=== PATIENT | male | born 1965 | race Caucasian/White ===

== ENCOUNTER 2018-09-04 16:59 | Observation (INO) | payer BC, SELFPAY ==
[~2018-09-04 16:59] MED LIST: ISOVUE-370 76%-LOCM 1 ML ONE
[2018-09-04 18:42] LABS: #Eosinphils 0.3 thou/uL (0.0-0.7); #Lymphocytes 1.3 thou/uL (1.20-3.40); #Monocytes 0.5 thou/uL (0.11-0.59); #Neutrophils 3.9 thou/uL (1.40-6.50); %Eosinophils 4.5 % (0.0-10.0); %Lymphocytes 21.5 % (21.0-51.0); %Monocytes 7.9 % (0.0-10.0); %Neutrophils 66.1 % (42.0-75.0); Hemoglobin 17.3 g/dL (14.0-18.0); Mean Corpuscular HGB CONC 35.1 g/dL (32.0-36.0); Mean Corpuscular Hemoglobin 31.4 pg (27.0-31.0); Mean Corpuscular Volume 89.6 fL (78.0-98.0); Mean Platelet Volume 8.6 fL (7.4-10.4); Platelet Count 123 thou/uL (130-400); RBC Distribution Width 12.3 % (11.5-14.5); White Blood Cell (WBC) Count 5.9 thou/uL (4.8-10.8)
[2018-09-04 19:05] LABS: ALT (SGPT) 274 U/L (8-55); AST (SGOT) 159 U/L (5-34); Albumin 4.8 g/dL (3.5-5.0); Alkaline Phosphatase 130 U/L (40-150); Anion Gap 16 mmol/L (10-20); BUN (Urea Nitrogen) 17 mg/dL (8.4-25.7); Bilirubin, Total 10.1 mg/dL (0.2-1.2); Calc. Creatinine Clearance 0 mL/min (70-130); Calcium 9.8 mg/dL (7.8-10.44); Carbon Dioxide 29 mmol/L (22-29); Chloride 98 mmol/L (98-107); Estimated GFR-MDRD 72; Glucose 101 mg/dL (70-105); Lipase 30 U/L (8-78); Potassium 3.7 mmol/L (3.5-5.1); Protein, Total 7.8 g/dL (6.0-8.3); Sodium 139 mmol/L (136-145)
[2018-09-04 19:22] LABS: INR-International Normal Ratio 1.1; PTT 28.7 SEC (22.9-36.1); Prothrombin Time 13.8 SEC (12.0-14.7)
[2018-09-04 20:02] LABS: Bilirubin Large (Negative); Blood, Urine Negative (Negative); Clarity CLEAR (Clear); Glucose, Urine (Dipstick) Negative (Negative); Leukocyte Small (Negative); Nitrite Positive (Negative); Protein, Urine (Dipstick) Negative (Neg-Trace); Specific Gravity, Urine 1.023 (1.002-1.036)
[2018-09-04 20:05] LABS: Bacteria/HPF None Seen HPF (None Seen); Hyaline Casts/LPF 4-6 HYALINE CAST LPF (0-3 Hyaline); Pathc Cast-AUWi Flag 0.29 (0-2.49); RBC/HPF 0-3 HPF (0-3); Squamous Epithelial 0-3 HPF (0-3)
--- NOTE | 2018-09-04 22:39 | CT ---
CT ABDOMEN AND PELVIS WITH IV CONTRAST 09/04/18 HISTORY: Diffuse constant abdominal pain for four days. COMPARISON: Noncontrast CT abdomen and pelvis on 08/04/13. FINDINGS: There is dependent atelectasis at each lung base. Calcified granuloma is seen in the right middle lob e. The heart is mildly enlarged. The thoracic aorta is normal in caliber without evidence of an aortic dissection. The previously seen exophytic lesions involving the inferior pole left kidney are present with increased density lesions again present, not significantly changed in size from the prior study and may represent Bosniak type II renal cystic lesions. The hypodense exophytic lesion inferior pole left kidney is also again pres ent but measures larger in size on today's examination measuring 3.3 cm and previously measured 2.4 c m. However, this does demonstrate increased density on the current study and there is also a tiny foc al calcification along the margin of this cystic lesion. There is cholelithiasis. The liver has a normal CT appearance. The spleen is at the upper limits of normal in size measuring 1 3.6 cm in craniocaudal dimensions. The pancreas, bilateral adrenal glands, right kidney, and urinary bladder demonstrate a normal CT nelda earance. Loops of small bowel are normal in caliber. There is no free fluid, fluid collection, or lymphadenopathy seen in the abdomen or pelvis. Degenerative changes are seen in the visualized lower thoracic spine. There is a prominent fat containing right inguinal canal which was also present on the prior study. IMPRESSION: 1. Exophytic lesions emanating from the inferior pole left kidney which do not meet criteria for simple cysts. The smaller increased density cystic lesions are stable in size from the prior study a nd are probably related to Bosniak type II renal cystic lesions. However, the lower density exophytic lesion is larger in size measuring 3.3 cm and does not demonstrate attenuation coefficient compatibl e with a simple cyst. This could also be related to Bosniak type II renal cystic lesion but followup CT scan following the renal mass protocol is recommended versus MRI for further evaluation. 2. Mild cardiomegaly. 3. Cholelithiasis. 4. Prominent fat containing right inguinal canal. Upper limits of normal to borderline splenomeg jake. Code T POS: MOISÉS
--- NOTE | 2018-09-04 23:00 | PDOC.FPRHP ---
- History of Present Illness Chief Complaint: abdominal pain History of Present Illness: 52yo M with pmh of fatty liver presents with 1 week hx of diffuse abdominal pain that "feels like indigestion" rated 4-7/10 on pain scale. Pain exacerbated by eating, pt has associated decreased PO intake. Additionally reports dark stools over last few days and 1 day hx of yellow skin and eyes. 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 Regarding fatty liver, pt was Dx 6 years ago and reported having normal EGD at the time. Reports significant lifestyle changes and has since been eating diet of mostly vegetables and fruits. Has never drank more than 1 beer/month but stopped drinking all together on Dx. ED Course: bolus IVF - Allergies/Adverse Reactions Allergies Allergy/AdvReac Type Severity Reaction Status Date / Time No Known Allergies Allergy Verified 09/05/18 01:09 - History PMHx: fatty liver PSHx: EGD 2012 FHx: none Social: former social drinker, denies tobacco/drugs - Review of Systems General: denies: fever/chills, fatigue Eyes: denies: eye pain, vision changes ENT: denies: nasal congestion, rhinorrhea Respiratory: denies: cough, shortness of breath Cardiovascular: denies: chest pain, palpitation Gastrointestinal: reports: nausea. denies: vomiting Genitourinary: denies: incontinence, dysuria Skin: denies: rashes, lesions Musculoskeletal: denies: pain, tenderness Neurological: denies: syncope, seizure Psychological: reports: anxiety. denies: depression - Vital signs BP: [133/90] HR: [72] RR: [16] Tmax: [98.4] Pox: [98]% on [ra] Wt: [108kg] - Physical Exam Constitutional: awake, alert and oriented, well developed HEENT: EOMI, grossly normal vision, grossly normal hearing, normal nasal mucosa , other (scleral icterus) Neck: supple, trachea midline Chest: no-tender to palpation Heart: RRR, normal S1/S2 Lungs: CTAB, no respiratory distress Abdomen: soft, bowel sounds present, other (mild TTP in RLQ, negative heel tap, negative obturator/psoas sign.) Musculoskeletal: normal structure, normal tone Neurological: no focal deficit, normal sensation Skin: no rash/lesions, good turgor Heme/Lymphatic: no purpura, no petechia Psychiatric: normal mood and affect, good judgment and insight FMR H&P: Results - Labs Result Diagrams: 09/04/18 18:16 09/04/18 18:16 Lab results: WBC 5.9 thou/uL (4.8-10.8) 09/04/18 18:16 Hgb 17.3 g/dL (14.0-18.0) 09/04/18 18:16 Hct 49.2 % (42.0-52.0) 09/04/18 18:16 MCV 89.6 fL (78.0-98.0) 09/04/18 18:16 Plt Count 123 thou/uL (130-400) L 09/04/18 18:16 Neutrophils % 66.1 % (42.0-75.0) 09/04/18 18:16 Sodium 139 mmol/L (136-145) 09/04/18 18:16 Potassium 3.7 mmol/L (3.5-5.1) 09/04/18 18:16 Chloride 98 mmol/L (98-107) 09/04/18 18:16 Carbon Dioxide 29 mmol/L (22-29) 09/04/18 18:16 BUN 17 mg/dL (8.4-25.7) 09/04/18 18:16 Creatinine 1.08 mg/dL (0.7-1.3) 09/04/18 18:16 Glucose 101 mg/dL (70-105) 09/04/18 18:16 Calcium 9.8 mg/dL (7.8-10.44) 09/04/18 18:16 Total Bilirubin 10.1 mg/dL (0.2-1.2) H 09/04/18 18:16 AST 159 U/L (5-34) H 09/04/18 18:16 ALT 274 U/L (8-55) H 09/04/18 18:16 Alkaline Phosphatase 130 U/L (40-150) 09/04/18 18:16 Serum Total Protein 7.8 g/dL (6.0-8.3) 09/04/18 18:16 Albumin 4.8 g/dL (3.5-5.0) 09/04/18 18:16 Lipase 30 U/L (8-78) 09/04/18 18:16 Urine Ketones Trace mg/dL (Negative) H 09/04/18 19:14 Urine Blood Negative (Negative) 09/04/18 19:14 Urine Nitrite Positive (Negative) H 09/04/18 19:14 Ur Leukocyte Esterase Small (Negative) H 09/04/18 19:14 Urine RBC 0-3 HPF (0-3) 09/04/18 19:14 Urine WBC 11-20 HPF (0-3) H 09/04/18 19:14 Ur Squamous Epith Cells 0-3 HPF (0-3) 09/04/18 19:14 Urine Bacteria None Seen HPF (None Seen) 09/04/18 19:14 FMR H&P: A/P - Problem List (1) Hyperbilirubinemia Current Visit: Yes Status: Acute Code(s): E80.6 - OTHER DISORDERS OF BILIRUBIN METABOLISM (2) Elevated transaminase level Current Visit: Yes Status: Acute Code(s): R74.0 - NONSPEC ELEV OF LEVELS OF TRANSAMNS & LACTIC ACID DEHYDRGNSE (3) Fatty liver Current Visit: Yes Status: Acute Code(s): K76.0 - FATTY (CHANGE OF) LIVER, NOT ELSEWHERE CLASSIFIED (4) Hypovolemia Current Visit: Yes Status: Acute Code(s): E86.1 - HYPOVOLEMIA (5) Cholelithiases Current Visit: Yes Status: Acute Code(s): K80.20 - CALCULUS OF GALLBLADDER W /O CHOLECYSTITIS W/O OBSTRUCTION - Plan 52yo M presenting for 1 week abdominal pain Hyperbilirubinemia and elevated transaminases likely 2/2 hepatocellular jaundice A- etiology likely fatty liver vs biliary obstruction vs. toxic hepatitis. CT abd shows cholelithiasis. Bili 10.1 on admission as well as mildly elevated transaminases, alk phos wnl. P-Will obtain labwork including direct bilirubin level, TSH, hepatitis panel, HIV screen, RPR, iron studies, and TTG. - RUQ US - consider inpatient vs outpatient GI consultation for possible ERCP. mild hypovolemia A- Hx of limited PO intake P- encourage PO intake - IVF overnight - control nausea with zofran UTI A- UA shows positive nitrites P- obtain UCx - rocephin Cholelithiasis A- stone(s) seen on CT P- RUQ US and plan per above Mild thrombocytopenia -Likely secondary to above. Continue to trend. FULL code PPx: Lovenox for VTE, Protonix for GI. FMR H&P: Upper Level - Pertinent history 52 yo CM with PMH of fatty liver presenting with complaint of abdominal pain. Pt notes diffuse intermittent cramping abdominal pain with associated decreased oral intake over the last 1-2 weeks. Pt states that he also noticed turning yellow yesterday and finally convinced pt to present to ER. Associated with some diarrhea and darker stools but pt denies fevers/chills, weight loss, change in bowel caliber, or BRBPR. Abdominal pain somewhat worsened with food. - Pertinent findings VSS Gen: pleasant in NAD CV: RRR, no murmurs Resp: unlabored, CTAB Abd: BS+, soft, NTTP, neg Navarro's - Plan Date/Time: 09/04/18 2300 I, Rudolph Meyer MD PGY3, have evaluated this patient and agree with findings/ plan as outlined by internal medicine nurse resident. Pertinent changes/additions are listed here. 1. Elevated LFTs possibly 2/2 Hepatocellular Jaundice -Pt presents with diffuse complaints of abdominal pain and found to have total bilirubin of 10.1 accompanied by mild elevation in AST & ALT as well. Alkaline phosphatase is normal. -DDx includes biliary obstruction, infectious hepatitis, toxic hepatitis, or impaired conjugation. -CT abd revealed cholelithiasis as potential cause. -Will workup including direct bilirubin level, TSH, hepatitis panel, HIV screen , iron studies, and TTG. Pt may benefit from dedicated RUQ US to further assess gallbladder pathology. -Due to history of limited PO intake and worsening with food, will IV hydrate overnight and trend labs. -Pending lab trends, consider inpatient vs outpatient GI consultation for possible ERCP. 2. Mild thrombocytopenia -Likely secondary to above. Continue to trend. FULL code PPx: Lovenox for VTE, Protonix for GI. disposition: Admit to medical observation for anticipated length of stay less than two midnights, pending clinical course. Addendum - Attending - Attending Attestation Date/Time: 09/05/18 [id number] I personally evaluated the patient and discussed the management with Dr. Almendarez I agree with the History, Examination, Assessment and Plan documented above with any addition or exceptions noted below.Interesting case of 52 yo male cavazos with PMHX presumed NAFLD treated with lifestyle modification ( denies ETOH abuse)with recent epigastric pain and spouse noticed jaundice prompting ER vist with finding of hyperbilirubenemia and gallstone with normal alk phosphatase and coags agree with above workup and plan of care. would check ferritin consider hemochromatosis.
[2018-09-05 01:02] VITALS: BMI 33.6
[2018-09-05] MEDS ORDERED: Ondansetron ODT 4 MG TAB PO PRN (01:06)
[2018-09-05] MEDS ORDERED: Ondansetron PF 4 MG/2 ML Vial IVP PRN (01:06)
[2018-09-05] MEDS: Lactated Ringer's 1,000 ML IV SCH ×3 (01:45→17:53)
[2018-09-05 01:55] LABS: HBCM Index 0.06 S/CO (0-0.79); HIV (1/2) Antibody/Antigen Non-Reactive (NonReactive); HIV 1/2 INDEX 0.07 S/CO (<1.00); Hep A IgM AB Non-Reactive (NonReactive); Hep A IgM S/CO 0.11 S/CO (0-0.79); Hep B Surf Ag Non-Reactive S/CO (NonReactive); Hep C IgG Ab Non-Reactive (NonReactive); Hep C Index 0.06 S/CO (0-0.79); Hepatitis B Core IgM Abs Non-Reactive (NonReactive); Thyroid Stimulating Hormone 0.8119 uIU/mL (0.35-4.94)
[2018-09-05] MEDS ORDERED: cefTRIAXone\\ROCEPHIN 1 GM in Sodium Chloride 0.9% 100 ML IVPB SCH (02:00)
[2018-09-05] MEDS: Ibuprofen 600 MG TAB PO PRN ×2 (05:33→17:13)
[2018-09-05 06:18] LABS: Syphilis Antibody Nonreactive (Nonreactive); Syphilis Antibody Index 0.05 S/CO (<1.00 Non-Reactive)
--- NOTE | 2018-09-05 06:37 | PDOC.FM ---
- Subjective Subjective: NAEO. Patient states he feels well this AM. Reports that his pain is slightly improved from presentation at a 6/10 in intensity and just a generalized cramping. Denies any chest pain, SOB, fever/chills, or N/V. - Objective MAR Reviewed: Yes Vital Signs & Weight: Vital Signs (12 hours) Temp Pulse Resp BP Pulse Ox 09/05/18 05:00 97.6 F 55 L 17 144/91 H 95 09/05/18 00:30 98.2 F 55 L 16 132/79 95 Weight Weight 109.316 kg I&O: 09/03/18 09/04/18 09/05/18 06:59 06:59 06:59 Intake Total 900 Balance 900 Result Diagrams: 09/04/18 18:16 09/05/18 05:30 Phys Exam - Physical Examination Constitutional: NAD HEENT: moist MMs, sclera anicteric Neck: supple, full ROM Respiratory: no wheezing, no rales, no rhonchi, clear to auscultation bilateral Cardiovascular: RRR, no significant murmur Gastrointestinal: positive bowel sounds not particularly TTP in any area; no rebound or guarding Neurological: non-focal, moves all 4 limbs Psychiatric: normal affect, A&O x 3 Skin: no rash Deviation from normal: jaundiced appearing chest and slight jaundice in palms Dx/Plan (1) Cholelithiases Code(s): K80.20 - CALCULUS OF GALLBLADDER W/O CHOLECYSTITIS W/O OBSTRUCTION Status: Acute (2) Elevated transaminase level Code(s): R74.0 - NONSPEC ELEV OF LEVELS OF TRANSAMNS & LACTIC ACID DEHYDRGNSE Status: Acute (3) Fatty liver Code(s): K76.0 - FATTY (CHANGE OF) LIVER, NOT ELSEWHERE CLASSIFIED Status: Acute (4) Hyperbilirubinemia Code(s): E80.6 - OTHER DISORDERS OF BILIRUBIN METABOLISM Status: Acute (5) Hypovolemia Code(s): E86.1 - HYPOVOLEMIA Status: Acute - Plan Plan: 52YOM w/ a reported h/o NAFLD presenting for 1 week of abdominal pain. Hyperbilirubinemia and elevated transaminases likely 2/2 hepatocellular jaundice - Abdominal pain DDx etiology includes fatty liver vs biliary obstruction vs. toxic hepatitis. CT abd shows cholelithiasis. Total bili 10.1 on admission with a direct bili of 3.7 & mildly elevated transaminases, alk phos wnl. - TSH, hepatitis panel, HIV screen, & RPR WNLs. iron studies and TTG pending. Will consider more AI studies as well. - RUQ US pending as well since CT showed gallstones - Will consider inpatient vs outpatient GI consultation for possible ERCP pending results of U/S. Will consider a HIDA scan as well pending U/S results. mild hypovolemia - Hx of limited PO intake - Will encourage PO intake & de-escalate IVFs as PO intake improves. - control nausea with zofran UTI - UA shows positive nitrites, LE, & WBCs. - Cx pending. - Will prophylactically treat w/ Rocephin. Cholelithiasis - stone(s) seen on CT - RUQ US pending and will proceed as described above pending the results. Mild thrombocytopenia -Likely secondary to above. Will ontinue to trend. FULL code PPx: Lovenox for VTE, Protonix for GI. IVFs: Lr @ 125mL/hr Diet: Clear liquids Addendum - Attending - Attending Attestation Date/Time: 09/05/18 3601 I personally evaluated the patient and discussed the management with Dr. Reis I agree with the History, Examination, Assessment and Plan documented above with any addition or exceptions noted below.Work up in progress note elevated ferritin no Chris-Edd rings noted on gross eye exam. Consult GI for further consideration appreciate recommendations.
[2018-09-05 06:51] LABS: ALT (SGPT) 249 U/L (8-55); AST (SGOT) 146 U/L (5-34); Albumin 4.2 g/dL (3.5-5.0); Alkaline Phosphatase 118 U/L (40-150); Anion Gap 13 mmol/L (10-20); BUN (Urea Nitrogen) 15 mg/dL (8.4-25.7); Bilirubin, Direct 4.9 mg/dL (0.1-0.3); Bilirubin, Total 10.2 mg/dL (0.2-1.2); Calc. Creatinine Clearance 135 mL/min (70-130); Calcium 9.2 mg/dL (7.8-10.44); Carbon Dioxide 29 mmol/L (22-29); Chloride 101 mmol/L (98-107); Estimated GFR-MDRD 79; Globulin 2.7 g/dL (2.4-3.5); Glucose 95 mg/dL (70-105); Potassium 3.6 mmol/L (3.5-5.1); Protein, Total 6.9 g/dL (6.0-8.3); Sodium 139 mmol/L (136-145)
--- NOTE | 2018-09-05 07:58 | ULT ---
RIGHT UPPER QUADRANT ULTRASOUND: Date: 09/05/18 PROVIDED CLINICAL HISTORY: Hyperbilirubinemia, gallstones. FINDINGS: The pancreas is obscured. The liver demonstrates no mass or intrahepatic biliary ductal dilatation. T he gallbladder is distended by material of increased echogenicity with associated shadowing. The gall bladder wall appears thickened, measuring approximately 5-6 mm. Trace pericholecystic fluid is seen. The common duct is dilated, measuring up to 1.1 cm. Right kidney demonstrates no evidence for hydrone phrosis or mass. IMPRESSION: 1. Cholelithiasis with gallbladder wall thickening and pericholecystic fluid. Correlate with concern s for acute cholecystitis. 2. Dilated common duct. Consider correlation with MRCP/ERCP as indicated. POS: MOISÉS
[2018-09-05] MEDS: Enoxaparin Sodium 40 MG/0.4 ML SYRINGE SC SCH (08:07)
[2018-09-05] MEDS: Piperacillin/Tazobactam 3.375 GM in Sodium Chloride 0.9% 100 ML IVPB SCH ×2 (14:28→20:06)
--- NOTE | 2018-09-05 20:31 | CON ---
DATE OF CONSULTATION: 09/05/2018 REASON FOR CONSULTATION: Elevated LFTs, right upper quadrant abdominal pain. CONSULTING PHYSICIAN: Dr. Terri Figueredo. HISTORY OF PRESENT ILLNESS: The patient is a 52-year-old male with past medical history of fatty liver/nonalcoholic steatohepatitis, presenting with complaints of increased abdominal pain. He states that over the last week, he has been having intermittent abdominal pain characterized as a cramping-type sensation located in the periumbilical region. The pain was nonradiating and would occur within seconds upon eating and would reach a severity of approximately 7 to 8/10. Over the last 3 to 4 days, he did notice significant worsening of this abdominal pain and became more consistent when compared to the episodes last week. The pain was worse with food intake, better with the pain medications and IV fluids he received while here in the hospital. Other than the abdominal pain, he denies any nausea, vomiting, fevers, chills, dysphagia, odynophagia, GI bleeding or weight loss. REVIEW OF SYSTEMS: A 10-category review of systems was obtained with all responses negative except for the pertinent positives as listed in the HPI. PAST MEDICAL HISTORY: As per HPI. PAST SURGICAL HISTORY: EGD performed in 2012. FAMILY HISTORY: Denies any GI malignancies. SOCIAL HISTORY: Denies any tobacco, alcohol, or illicit drug use. OUTPATIENT MEDICATIONS: Reviewed. ALLERGIES: NO KNOWN DRUG ALLERGIES. PHYSICAL EXAMINATION: VITAL SIGNS: Temperature 97.9, pulse 50, blood pressure 133/83, respiratory rate 20, saturating 96% on room air. GENERAL: The patient was lying in bed, in no acute distress. Alert and oriented x4. HEENT: Normocephalic, atraumatic. NECK: Supple. No JVD, but significant scleral icterus noted. CARDIOVASCULAR: Regular rate and rhythm with no discernible murmurs, gallops, or rubs. RESPIRATORY: Clear to auscultation bilaterally with no discernible wheezes or rales. ABDOMEN: Normoactive bowel sounds. Soft, nondistended. Tenderness to palpation in the right upper quadrant. EXTREMITIES: No cyanosis, clubbing, or edema. LABORATORY DATA: CBC with a white blood cell count of 5.9, hemoglobin 17.3, hematocrit 49.2, platelets 123. INR 1.1. Chemistry with a sodium of 139, potassium 3.6, chloride 101, CO2 29, BUN 15, creatinine 1, glucose 95, AST 146, ALT 249, alkaline phosphatase 118, total bilirubin 10.2, lipase 30, ferritin 2242. Urinalysis was positive for possible urinary tract infection and infectious workup was negative for syphilis, hepatitis, A, B, and C. IMAGING DATA: CT of the abdomen and pelvis was obtained on September 04, 2018, which showed normal contour of the liver without evidence of cirrhotic morphology as well as cholelithiasis. No specific mention was made on the common bile duct, but upon measuring the CBD myself, it measured approximately 13 mm in diameter. Right upper quadrant ultrasound obtained on September 05, 2018 showed no intrahepatic dilatation, but did show dilation of the common bile duct up to 11 mm in size, as well as gallbladder wall thickening with pericholecystic fluid concerning for cholecystitis. ASSESSMENT AND PLAN: The patient is a 52-year-old male with past medical history of fatty liver/nonalcoholic steatohepatitis, presenting with elevated LFTs and imaging concerning for choledocholithiasis. Choledocholithiasis. The patient is presenting with increased periumbilical abdominal pain that has been present for the last week to week and a half. It initially started out as intermittent episodes of cramping periumbilical pain; however, over the last 3-4 days, this worsened to include almost every time the patient ate with the pain occurring within seconds of food ingestion. Upon evaluation in the [facility], he was noted to have significant elevated LFTs in a pattern representing a probable obstructive pattern (albeit his alkaline phosphatase is normal), but given the presence of gallstones within the gallbladder and dilated common bile duct to almost twice the upper limit of normal, choledocholithiasis is much more likely. He does have an elevated ferritin at this time, but ferritin is also an acute phase reactant and could be elevated due to inflammation surrounding the gallbladder and/or the choledocholithiasis. Differential could also include common bile duct stricture/stenosis, cholangiocarcinoma or choledochal cyst. RECOMMENDATIONS: 1. We would place the patient on a clear liquid diet today with the patient to be n.p.o. at midnight in anticipation for an ERCP tomorrow morning. 2. We will plan for an ERCP tomorrow for evaluation of the biliary tract and probable stone extraction. 3. We would place the patient on Zosyn as part of antibiotic prophylaxis given increased concern for choledocholithiasis. 4. Continue with IV fluid administration. 5. We will continue to follow. Please call with any questions. Job ID: [id number]
[2018-09-06] MEDS: Ibuprofen 600 MG TAB PO PRN ×2 (00:22→20:06)
[2018-09-06] MEDS: Piperacillin/Tazobactam 3.375 GM in Sodium Chloride 0.9% 100 ML IVPB SCH ×4 (02:25→20:08)
[2018-09-06] MEDS: Lactated Ringer's 1,000 ML IV SCH ×3 (02:25→20:13)
--- NOTE | 2018-09-06 06:23 | PDOC.FM ---
- Subjective Subjective: NAEO. Patient resting comfortably in bed. Endorses some anxiety for the ERCP procedure today. No other issues or complaints. States no abdominal pain this morning. Oren SOB, chest pain, NVD. - Objective MAR Reviewed: Yes Vital Signs & Weight: Vital Signs (12 hours) Temp Pulse Resp BP Pulse Ox 09/06/18 05:00 97.8 F 63 16 134/84 97 09/05/18 20:01 98.5 F 54 L 17 155/97 H 97 Weight Weight 109.316 kg I&O: 09/04/18 09/05/18 09/06/18 06:59 06:59 06:59 Intake Total 900 2520 Balance 900 2520 Result Diagrams: 09/04/18 18:16 09/06/18 06:59 Phys Exam - Physical Examination Constitutional: NAD HEENT: PERRLA, moist MMs sclera icteric Neck: supple, full ROM Respiratory: clear to auscultation bilateral Cardiovascular: RRR Gastrointestinal: soft, no distention, positive bowel sounds mild TTP in RUQ Musculoskeletal: no edema Neurological: non-focal Psychiatric: normal affect, A&O x 3 Skin: normal turgor Deviation from normal: diffuse jaundiced skin color Dx/Plan (1) Cholelithiases Code(s): K80.20 - CALCULUS OF GALLBLADDER W/O CHOLECYSTITIS W/O OBSTRUCTION Status: Acute (2) Elevated transaminase level Code(s): R74.0 - NONSPEC ELEV OF LEVELS OF TRANSAMNS & LACTIC ACID DEHYDRGNSE Status: Acute (3) Fatty liver Code(s): K76.0 - FATTY (CHANGE OF) LIVER, NOT ELSEWHERE CLASSIFIED Status: Acute (4) Hyperbilirubinemia Code(s): E80.6 - OTHER DISORDERS OF BILIRUBIN METABOLISM Status: Acute (5) Hypovolemia Code(s): E86.1 - HYPOVOLEMIA Status: Acute - Plan Plan: Hyperbilirubinemia and elevated transaminases likely 2/2 hepatocellular jaundice Abdominal pain DDx etiology includes fatty liver vs biliary obstruction vs. toxic hepatitis. CT abd shows cholelithiasis. Total bili 10.1 on admission with a direct bili of 3.7 & mildly elevated transaminases, alk phos wnl. - TSH, hepatitis panel, HIV screen, & RPR WNLs. - Ferritin level elevated - acute phase reactant. Iron wnl. AI studies pending. - RUQ US: CBP dilated at 1.11 and wall thickening w/ stones - GI consulted: ERCP planned for 09/06 for likely stone extraction. Will f/u post procedure. Appreciate GI recommendations. Mild hypovolemia - Hx of limited PO intake - IVF, pt NPO due to procedure for 09/06 - Control nausea with zofran UTI - UA shows positive nitrites, LE, & WBCs; Cx no growth at 12 hrs - Will prophylactically treat w/ zosyn Cholelithiasis - Stone(s) seen on CT; US confirmed - enlarged CBD - GI consulted and plan for ERCP on 09/06 Mild thrombocytopenia - Likely secondary to above FULL code PPx: Lovenox for VTE, Protonix for GI. Dispo: ERCP for cholelithiasis, will f/u post procedure Addendum - Attending - Attending Attestation Date/Time: 09/06/18 [id number] I personally evaluated the patient and discussed the management with Dr. Haynes. I agree with the History, Examination, Assessment and Plan documented above with any addition or exceptions noted below. Pt. postop ERCP with sphincterotomy and stone extraction w/o c/o's. Surgery eval'd and plan is Susannah Oconnor in a.m.
[2018-09-06 07:59] LABS: ALT (SGPT) 228 U/L (8-55); AST (SGOT) 123 U/L (5-34); Albumin 4.2 g/dL (3.5-5.0); Alkaline Phosphatase 108 U/L (40-150); Anion Gap 15 mmol/L (10-20); BUN (Urea Nitrogen) 10 mg/dL (8.4-25.7); Bilirubin, Direct 4.4 mg/dL (0.1-0.3); Bilirubin, Total 9.5 mg/dL (0.2-1.2); Calc. Creatinine Clearance 116 mL/min (70-130); Calcium 9.6 mg/dL (7.8-10.44); Carbon Dioxide 26 mmol/L (22-29); Chloride 104 mmol/L (98-107); Estimated GFR-MDRD 66; Globulin 2.6 g/dL (2.4-3.5); Glucose 92 mg/dL (70-105); Potassium 4.2 mmol/L (3.5-5.1); Protein, Total 6.8 g/dL (6.0-8.3); Sodium 141 mmol/L (136-145)
[2018-09-06] MEDS: Enoxaparin Sodium 40 MG/0.4 ML SYRINGE SC SCH (08:02)
[2018-09-06] MEDS ORDERED: Indomethacin 50 MG SUPP PR ONE (09:00)
[2018-09-06] MEDS ORDERED: Fentanyl 250 MCG/5 ML VIAL ONE (09:21)
[2018-09-06] MEDS ORDERED: Iothalamate Meglumine 60% 50 ML VIAL FS ONE (09:36)
[2018-09-06] MEDS ORDERED: Indomethacin 50 MG SUPP ONE (10:01)
--- NOTE | 2018-09-06 12:35 | OP ---
DATE OF PROCEDURE: 09/06/2018 PROCEDURE PERFORMED: Endoscopic retrograde cholangiopancreatography with sphincterotomy and stone extraction. INDICATIONS FOR PROCEDURE: Choledocholithiasis, abnormal LFTs. DESCRIPTION OF PROCEDURE: After the risks and benefits of the procedure were explained to the patient including risks of bleeding, infection, perforation, aspiration, reactions to anesthesia and/or pain, pancreatitis, informed consent was obtained. The patient was then taken to the endoscopy suite, where general anesthesia was administered with endotracheal tube intubation via Anesthesia support. Once the patient was sedated and intubated, he was maneuvered into a prone position in preparation for the ERCP. Once in adequate position, the standard duodenoscope was introduced into the mouth with intubation of the esophagus, stomach, and the proximal small intestine with the findings listed below. Limited views were obtained of the esophagus and stomach, but adequate views were obtained from the small intestine. The patient underwent sphincterotomy with filling defects noted on cholangiogram, so balloon extraction was performed with successful extraction of biliary sludge and 5 to 6-mm black pigmented stone. Upon completion of the procedure, the biliary system was draining albeit somewhat slowly, but with morris bile draining. At which point, all equipment was removed from the patient. The patient was then extubated and taken to PACU in satisfactory condition. FINDINGS: EGD: Limited views were obtained from the esophagus, stomach, and the proximal small intestines, but of the mucosa visualized during the portion of the examination, there was normal-appearing mucosa seen in the proximal, mid, and distal esophagus. There was also normal-appearing mucosa seen in the gastric cardia, fundus, body, and antrum. There was no evidence of erosions, ulcerations, mass, lesions, or active/recent bleeding in any of these regions. ERCP FINDINGS: The ampulla was easily identified in the second portion of the duodenum with a bulbous type appearance. Minimal amount of bile was seen at the opening, but not actively draining. The ampulla was then successfully cannulated using a 5 mm sphincterotome with a guidewire placed into the intrahepatic tree to maintain stability. Using the sphincterotome, a cholangiogram was performed, which showed approximately two filling defects located in the distal common bile duct indicative of choledocholithiasis. Once this was completed, the sphincterotome was then used to perform a sphincterotomy. With successful sphincterotomy performed, however, there was some minimal bleeding during the sphincterotomy that was cauterized with the sphincterotome itself with minimal bleeding noted afterwards and good hemostasis achieved. Upon completion of the sphincterotomy, the sphincterotome was then removed using exchange technique over the guidewire and exchanged for a 9 to 12 mm balloon. Upon placement of the balloon within the common bile duct, it was noted that the common bile duct was estimated around 15 mm in size with multiple balloon sweeps with a 9 to 12 mm balloon. A large amount of black sludge and very fine black stone debris was extruded from the ampulla. The balloon was then exchanged for a 12 to 15 mm balloon. At which point, the balloon was advanced into the common hepatic and upon withdrawal of the balloon, I was able to achieve extraction of 5 to 6 mm black pigmented stone in addition to more biliary sludge and very fine black pigmented stone debris. Upon completion of this portion of the procedure, again, there was some minimal blood noted coming from the ampulla but despite placing a bipolar cautery, the bleeding stops spontaneously with no observable bleeding site at the end of the procedure. The common bile duct was then seen to be draining albeit slowly at the completion of the procedure with the contrast coming into the small intestine. At which point, the procedure was terminated with all equipment removed from the patient. IMPRESSION: 1. Choledocholithiasis, status post successful sphincterotomy and stone extraction. 2. Minimal bleeding noted during sphincterotomy controlled with cautery and good hemostasis achieved. RECOMMENDATIONS: 1. Would continue to trend hemoglobin and hematocrit and transfuse as necessary to maintain a hemoglobin and hematocrit of 7/21. 2. Would monitor for signs of active GI bleeding given the minimal amount of bleeding seen during endoscopic retrograde cholangiopancreatography today. 3. Would consult General Surgery Service for evaluation for possible cholecystectomy during this admission given the presence of choledocholithiasis on exam today. 4. Would monitor clinically for signs of post-ERCP pancreatitis. 5. We will continue to follow. Please call with any questions. Job ID: [id number]
[2018-09-06] MEDS ORDERED: Lidocaine 1% PF 5 ML VIAL ONE (14:51)
[2018-09-06] MEDS ORDERED: Glycopyrrolate 0.2 MG/ML 5 ML SYRINGE ONE (14:51)
[2018-09-06] MEDS ORDERED: Rocuronium Bromide 10 MG/ML (10ML VIAL) ONE (14:51)
[2018-09-06] MEDS ORDERED: Dexamethasone 20 MG/5 ML VIAL ONE (14:51)
[2018-09-06] MEDS ORDERED: PROPOFOL 200 MG/20 ML VIAL ONE (14:51)
[2018-09-06] MEDS ORDERED: Ondansetron PF 4 MG/2 ML Vial ONE (14:51)
--- NOTE | 2018-09-06 15:29 | RAD ---
ERCP TWO INTRAOPERATIVE RADIOGRAPHS: HISTORY: Hyperbilirubinemia. History of fatty liver. FINDINGS: Two intraoperative images obtained. There is catheterization and injection of the common bile duct. A balloon-tipped catheter is seen in the distal common bile duct. No evidence of intrahepatic biliary dilatation or evidence of filling defect seen. IMPRESSION: Successful ERCP. No definite evidence of residual calculi seen. POS: [facility]
--- NOTE | 2018-09-06 19:38 | CON ---
DATE OF CONSULTATION: 09/06/2018 HISTORY OF PRESENT ILLNESS: Mr. Sharma is a 52-year-old man with history of a fatty liver. The patient presented with 1-week history of recurrent epigastric right upper quadrant abdominal pain. Over the last 2 to 3 days, family noted the patient to be jaundiced. The patient has been anorexic, possibly have exacerbated in his abdominal pain. He reported some abdominal bloating and flatulence over the last several days. The patient denies any hematochezia or melena. PAST MEDICAL HISTORY: Pertinent for nonalcoholic fatty liver. PAST SURGICAL HISTORY: Pertinent for EGD in 2012. He also had a tonsillectomy and adenoidectomy at the age of 6. Of note, the patient underwent ERCP today with sphincterotomy and extraction of common bile duct stones. FAMILY HISTORY: The patient denies any family history of diabetes mellitus, hypertension, heart disease, or cancer. PREHOSPITAL MEDICATION: None. ALLERGIES: THE PATIENT DENIES ANY KNOWN DRUG ALLERGIES. REVIEW OF SYSTEMS: Ten-point review of systems essentially unremarkable except as stated in past medical history and chief complaint. PHYSICAL EXAMINATION: GENERAL: This reveals a 52-year-old normally developed man, who is otherwise coherent and interactive and appears stated age. The patient is alert and oriented x3 appears to be in no acute distress at time of my evaluation. VITAL SIGNS: Today includes blood pressure 125/73, pulse is 56, respiratory rate is 16, temperature is 97.3 degrees Fahrenheit, and oxygen saturation is 95% on room air. HEENT: Reveals normocephalic and atraumatic. Pupils are equal, round, and reactive to light and accommodation. He has bilateral scleral icterus present. HEART: Reveals regular rate with sinus bradycardia. No murmurs or gallops auscultated. LUNGS: Clear to auscultation bilaterally. Breathing, regular and nonlabored. ABDOMEN: Soft, nontender, and nondistended. Bowel sounds in all 4 quadrants appear normoactive. Liver and spleen nonpalpable below costal margin. EXTREMITIES: Reveal 2+ radial and pedal pulses bilaterally. No ankle edema is present. NEUROLOGIC: Reveals no focal deficits present. LABORATORY FINDINGS: Today includes a metabolic profile; sodium is 141, potassium is 4.2, chloride is 104, bicarb is 26, BUN is 10, creatinine is 1.16, glucose is 92, and total bilirubin is 9.5, it was 10.2 yesterday. Direct bilirubin is 4.4 and AST and ALT noted at 123 and 128 respectively. CBC on admission 09/04/2018, reveals a 5900 white blood cells and hemoglobin and hematocrit 17.3 and 49.2 respectively. Platelet count 123,000. I have personally reviewed the abdominal ultrasound, which was obtained yesterday, which shows multiple intraluminal gallstones with thickened gallbladder wall as well as pericholecystic fluid. The common bile duct is dilated for this patient's age at 11 mm in diameter. IMPRESSION: 1. Acute cholecystitis with cholelithiasis. 2. Choledocholithiasis status post endoscopic retrograde cholangiopancreatography and common bile duct stone extraction. RECOMMENDATIONS: 1. Laparoscopic cholecystectomy. 2. Above findings and recommendations have been discussed with the patient, his , and other family members at bedside. 3. I advised the patient of the risks and benefits of proposed surgery to include, but not limited to bleeding, infection, injury to bile duct or surrounding structures. The patient indicated understanding of the information I have given him today. I have answered his questions. The patient is going to consent for the surgical intervention. Thank you again, Dr. Douglas, for allowing me the opportunity to participate in the care of this patient. Job ID: [id number]
[2018-09-07] MEDS: Lactated Ringer's 1,000 ML IV SCH (01:35)
[2018-09-07] MEDS: Piperacillin/Tazobactam 3.375 GM in Sodium Chloride 0.9% 100 ML IVPB SCH ×3 (02:42→15:03)
[2018-09-07 06:05] LABS: #Eosinphils 0.1 thou/uL (0.0-0.7); #Lymphocytes 1.2 thou/uL (1.20-3.40); #Monocytes 0.4 thou/uL (0.11-0.59); #Neutrophils 4.8 thou/uL (1.40-6.50); %Basophils 0.5 % (0.0-1.0); %Eosinophils 1.3 % (0.0-10.0); %Lymphocytes 18.4 % (21.0-51.0); %Monocytes 6.7 % (0.0-10.0); Hemoglobin 15.3 g/dL (14.0-18.0); Mean Corpuscular Volume 91.2 fL (78.0-98.0); Mean Platelet Volume 8.7 fL (7.4-10.4); Platelet Count 130 thou/uL (130-400); RBC Distribution Width 11.8 % (11.5-14.5); White Blood Cell (WBC) Count 6.6 thou/uL (4.8-10.8)
[2018-09-07] MEDS ORDERED: Lactated Ringer's 1,000 ML IV SCH ×2 (06:05→08:44)
--- NOTE | 2018-09-07 06:08 | PDOC.FM ---
- Subjective Subjective: NAEO. Patient anxious for procedure today but reports improvement in abdominal pain. Patient denies SOB, chest pain, palpitations, NVD. Patient reports that he is "ready to get it over with." Patient was seen in day stay area prior to surgery with at the bedside. All questions about procedure were asked and answered. - Objective MAR Reviewed: Yes Vital Signs & Weight: Vital Signs (12 hours) Temp Pulse Resp BP BP Pulse Ox 09/07/18 05:00 98.7 F 51 L 18 107/58 L 95 09/07/18 00:35 51 L 09/07/18 00:00 98.2 F 45 L 20 117/67 93 L 09/06/18 20:00 97.6 F 62 20 121/73 93 L Weight Weight 109.316 kg I&O: 09/05/18 09/06/18 09/07/18 06:59 06:59 06:59 Intake Total 900 2520 2660 Output Total 450 Balance 900 2520 2210 Result Diagrams: 09/07/18 05:55 09/07/18 05:55 Phys Exam - Physical Examination Constitutional: NAD HEENT: PERRLA, moist MMs Neck: full ROM Respiratory: clear to auscultation bilateral Cardiovascular: RRR Gastrointestinal: soft, no distention, positive bowel sounds Musculoskeletal: no edema, pulses present Neurological: non-focal, moves all 4 limbs Psychiatric: normal affect, A&O x 3 Dx/Plan (1) Cholelithiases Code(s): K80.20 - CALCULUS OF GALLBLADDER W/O CHOLECYSTITIS W/O OBSTRUCTION Status: Acute (2) Elevated transaminase level Code(s): R74.0 - NONSPEC ELEV OF LEVELS OF TRANSAMNS & LACTIC ACID DEHYDRGNSE Status: Acute (3) Fatty liver Code(s): K76.0 - FATTY (CHANGE OF) LIVER, NOT ELSEWHERE CLASSIFIED Status: Acute (4) Hyperbilirubinemia Code(s): E80.6 - OTHER DISORDERS OF BILIRUBIN METABOLISM Status: Acute (5) Hypovolemia Code(s): E86.1 - HYPOVOLEMIA Status: Acute - Plan Plan: Hyperbilirubinemia and elevated transaminases 2/[address] abd shows cholelithiasis. Total bili 10.1 on admission with a direct bili of 3.7 & mildly elevated transaminases, alk phos wnl. ERCP - CBD stone extraction - TSH, hepatitis panel, HIV screen, & RPR WNLs. - Ferritin level elevated - acute phase reactant. Iron wnl. AI studies pending. - RUQ US: CBP dilated at 1.11 and wall thickening w/ stones - GI consulted: ERCP w/ stone extraction on 09/06. Surg consulted and plan for lap cholecystectomy on 09/07. Mild hypovolemia Hx of limited PO intake - IVF, pt NPO due to procedure for 09/07 - Control nausea with zofran UTI UA shows positive nitrites, LE, & WBCs; Cx no growth at 12 hrs - Will prophylactically treat w/ zosyn Cholelithiasis/Choledocholithiasis Stone(s) seen on CT; US confirmed - enlarged CBD - GI consulted - ERCP performed on 09/06 - CBD stone extraction. Gen Surg consulted and plan for lap donna on 09/07 - Will monitor pain control post procedure Mild thrombocytopenia - Likely secondary to above FULL code PPx: Lovenox for VTE, Protonix for GI. Dispo: lap donna planned for 09/07, discharge later today or tomorrow Addendum - Attending - Attending Attestation Date/Time: 09/07/18 5949 I personally evaluated the patient and discussed the management with Dr. Pool I agree with the History, Examination, Assessment and Plan documented above with any addition or exceptions noted below. Cholecystits and retained gallstone-s/p ERCP with stone extraction and now s/p lap donna- pain control and trend liver enzymes.Continue zosyn.
[2018-09-07 06:09] LABS: PTT 27.4 SEC (22.9-36.1); Prothrombin Time 13.5 SEC (12.0-14.7)
[2018-09-07] MEDS ORDERED: Fentanyl 250 MCG/5 ML VIAL ONE (06:22)
[2018-09-07 06:29] LABS: ALT (SGPT) 186 U/L (8-55); AST (SGOT) 86 U/L (5-34); Albumin 4.2 g/dL (3.5-5.0); Alkaline Phosphatase 107 U/L (40-150); Anion Gap 13 mmol/L (10-20); BUN (Urea Nitrogen) 13 mg/dL (8.4-25.7); Bilirubin, Total 6.4 mg/dL (0.2-1.2); Calc. Creatinine Clearance 121 mL/min (70-130); Calcium 9.6 mg/dL (7.8-10.44); Carbon Dioxide 25 mmol/L (22-29); Chloride 105 mmol/L (98-107); Estimated GFR-MDRD 69; Globulin 2.5 g/dL (2.4-3.5); Glucose 110 mg/dL (70-105); Phosphorus 3.4 mg/dL (2.3-4.7); Potassium 4.3 mmol/L (3.5-5.1); Protein, Total 6.7 g/dL (6.0-8.3); Sodium 139 mmol/L (136-145)
[2018-09-07] MEDS ORDERED: Piperacillin/Tazobactam 3.375 GM VIAL ONE (06:42)
[2018-09-07] MEDS ORDERED: Sodium Chloride 0.9% 100 ML ONE (06:42)
[2018-09-07] MEDS ORDERED: Bupivacaine HCl 0.25%/Epi 0.0005/PF 10 ML VIAL FS ONE (06:44)
[2018-09-07] MEDS ORDERED: HYDROmorphone 2 MG/ML VIAL ONE (08:12)
[2018-09-07] MEDS ORDERED: Promethazine HCl 25 MG/ML VIAL IM PRN (08:15)
[2018-09-07] MEDS ORDERED: Ketorolac Tromethamine 30 MG/ML VIAL IVP PRN (08:15)
[2018-09-07] MEDS ORDERED: Ondansetron HCl/PF 4 MG/2 ML Vial IVP PRN (08:15)
[2018-09-07] MEDS ORDERED: Meperidine HCl/PF 25 MG/ML VIAL SLOW IVP PRN (08:15)
[2018-09-07] MEDS ORDERED: Promethazine HCl 25 MG/ML VIAL SLOW IVP PRN (08:15)
[2018-09-07] MEDS ORDERED: traMADol HCl 50 MG TAB PO PRN (08:43)
[2018-09-07] MEDS ORDERED: Fentanyl 100 MCG/2 ML VIAL ONE (09:02)
[2018-09-07] MEDS: Acetaminophen 500 MG TAB PO SCH ×3 (10:15→15:12)
[2018-09-07] MEDS: Enoxaparin Sodium 40 MG/0.4 ML SYRINGE SC SCH (10:15)
--- NOTE | 2018-09-07 10:31 | OP ---
DATE OF PROCEDURE: 09/07/2018 PREOPERATIVE DIAGNOSES: 1. Acute cholecystitis with cholelithiasis. 2. Choledocholithiasis status post endoscopic retrograde cholangiopancreatography with common bile duct stone extraction. POSTOPERATIVE DIAGNOSES: 1. Acute cholecystitis with cholelithiasis. 2. Choledocholithiasis status post endoscopic retrograde cholangiopancreatography with common bile duct stone extraction. OPERATION PERFORMED: Laparoscopic cholecystectomy. ANESTHESIA: General endotracheal. ESTIMATED BLOOD LOSS: 10 mL. FLUIDS GIVEN: 900 mL crystalloids. COUNTS: Sponge and instrument counts were verified as correct x2. COMPLICATIONS: None apparent at the time of operation. INDICATIONS FOR OPERATION: A 52-year-old man presented with recurrent epigastric to right upper quadrant abdominal pain, which is exacerbated by eating. Clinical radiographic examination was consistent with acute cholecystitis with cholelithiasis. Additionally, the patient was found with choledocholithiasis, for which he underwent an uneventful ERCP yesterday with common bile duct stone extraction. He returns to operating room today for laparoscopic cholecystectomy. Findings are consistent with dilated gallbladder in the usual anatomic location, partially encased by omental adhesions. DESCRIPTION OF OPERATION: Informed consent obtained from the patient, who was brought to the operating room and placed in supine position. Following general endotracheal anesthesia, abdomen was sterilely prepped and draped in the usual fashion. The skin below the umbilicus was then infiltrated with 0.25% Marcaine with epinephrine. A small curvilinear infraumbilical incision was made using 11 scalpel. Umbilical stalk grasped with Zeb and elevated. Veress needle was inserted through the incision, placed in the peritoneal cavity through which the abdomen was insufflated with 3 L of CO2 gas. Intraabdominal pressure was noted at 1 mmHg. Following abdominal insufflation, Veress needle was removed and a 5 mm trocar introduced using a Visiport under laparoscopy. Laparoscopy confirmed proper placement of the port. No injuries to underlying structures. Additional laparoscopy reveals gallbladder in the usual anatomic location, partially encased by omental adhesions. Under direct laparoscopy, a 12 mm epigastric and two 5 mm right lateral subcostal ports were placed after the overlying skin were infiltrated with 0.25% Marcaine with epinephrine and appropriate incision was made. The patient was placed in a reverse Trendelenburg position, rotated to his left. I introduced Prestige grasper through the right lateral subcostal port, grasping the fundus of the gallbladder, which was elevated cephalad. Omental adhesions were dissected off the gallbladder using a [place] dissector with cautery, good hemostasis in place. A second Prestige grasper introduced through the right medial subcostal port, grasping the Canelo's pouch, which was retracted laterally. The cystic duct was dissected free from surrounding structures at the triangle of Calot. This was divided between clips. Two clips were applied proximally, 1 clip at the junction of the cystic duct and gallbladder. The cystic artery was dissected free from surrounding structures and divided between clips in a similar fashion. The gallbladder surface removed from the liver bed using cautery with good hemostasis. The gallbladder was delivered off the abdominal cavity using an EndoCatch. Operative site was inspected for good hemostasis. All clips remained in place. No bile stains noted. Finding no other pathology, laparoscopy was terminated. Fascia of the epigastric port was closed using 0 Vicryl suture and Endo Close device on the laparoscopy. The abdomen was desufflated. All ports and instruments removed and accounted for. Skin incision was closed using 4-0 Monocryl suture in subcuticular fashion. Dermabond was applied over incisional closure. The patient tolerated the operation without any apparent complication and has returned to recovery room in satisfactory condition. Job ID: [id number]
[2018-09-07] MEDS ORDERED: Ketorolac Tromethamine 30 MG/ML VIAL IVP SCH (11:00)
[2018-09-07] MEDS: traMADol HCl 50 MG TAB PO PRN ×2 (11:14→18:16)
[2018-09-07] MEDS: Ibuprofen 600 MG TAB PO PRN (15:26)
[2018-09-07] MEDS ORDERED: Glycopyrrolate 0.2 MG/ML 5 ML SYRINGE ONE (15:52)
[2018-09-07] MEDS ORDERED: Naloxone HCl 0.4 mg/ml Vial ONE (15:52)
[2018-09-07] MEDS ORDERED: Lidocaine 1% PF 5 ML VIAL ONE (15:52)
[2018-09-07] MEDS ORDERED: Ondansetron PF 4 MG/2 ML Vial ONE (15:52)
[2018-09-07] MEDS ORDERED: Rocuronium Bromide 10 MG/ML (10ML VIAL) ONE (15:52)
[2018-09-07] MEDS ORDERED: Ketorolac Tromethamine 30 MG/ML VIAL ONE (15:52)
[2018-09-07] MEDS ORDERED: PROPOFOL 200 MG/20 ML VIAL ONE (15:52)
[2018-09-07 16:13] LABS: Cytoplasmic (C-ANCA) <1:20 titer (Neg:<1:20); Myeloperoxidase AutoAbs <9.0 U/mL (0.0-9.0); Perinuclear (P-ANCA) <1:20 titer (Neg:<1:20); Proteinase-3 AutoAbs 3.7 U/mL (0.0-3.5)
[2018-09-07 17:44] VITALS: BP 118/68; TEMP 98.1
--- NOTE | 2018-09-08 11:05 | DIS ---
DATE OF ADMISSION: 09/04/2018 DATE OF DISCHARGE: 09/07/2018 RESIDENT: Nury Pool MD ADMITTING ATTENDING Dr. Dickey. DISCHARGE ATTENDING: Dr. Venancio Pineda. CONSULTS: 1. Gastroenterology. 2. General Surgery. PROCEDURES: 1. ERCP. 2. Laparoscopic cholecystectomy. PRIMARY DIAGNOSES: 1. Hyperbilirubinemia and elevated transaminases secondary to choledocholithiasis. 2. Mild hypovolemia. SECONDARY DIAGNOSES: 1. Urinary tract infection. 2. Mild thrombocytopenia. DISCHARGE MEDICATIONS: Tramadol 1-2 tabs oral 4 times daily as needed. DISCONTINUED MEDICATIONS: None. HISTORY OF PRESENT ILLNESS/HOSPITAL COURSE: This is a 52-year-old male with a past medical history significant for fatty liver disease who presented to the ER with a 1-week history of diffuse abdominal pain. The patient describes the pain as feeling like indigestion, rated as a 4 to 7/10 pain. The patient states that the pain was exacerbated by eating. The patient reported decreased p.o. intake over the last week. The patient also reported dark stools over the last few days and had a 1- day history of yellowing skin and eyes. The patient denied any recent travel, takes no medications and reported that he had recently been under a great deal of financial stress. Regarding patient's fatty liver, the patient was diagnosed 6 years ago and reportedly had a normal EGD at that time. Since that time, the patient made significant lifestyle changes and has been eating a diet mostly of vegetables and fruits. The patient has never drank more than one beer a month and stopped drinking altogether when he was diagnosed 6 years ago. On admission, the patient's vital signs were within normal limits and remained within normal limits throughout his stay. The patient's total bilirubin was 10.1 on admission and his direct bilirubin was also elevated at 3.7. The patient's AST and ALT were also elevated and trended down throughout his stay. The patient's alkaline phosphatase was normal. The patient's ferritin was found to be elevated at 2242.41. This was likely due to being an acute phase reactant. Otherwise, the patient's labs were unremarkable. The patient was started on antibiotics. The patient had a right upper quadrant ultrasound that showed common bile duct dilated at 1.11 and wall thickening down. GI was consulted. The patient had an ERCP on 09/06/2018, with stone extraction. The patient had a laparoscopic cholecystectomy on 09/07/2018 with no complications. The patient's TSH, hepatitis panel, HIV, and RPR were all within normal limits. The patient's iron was also found to be within normal limits. The patient had pain control with Ultram and was sent home with this medication. No antibiotics needed upon discharge. DISPOSITION: Stable. DISCHARGE INSTRUCTIONS: Location: Home. Activity: As tolerated. Diet: Regular. FOLLOWUP: Follow up with PCP within one week and follow up with Dr. Archer within 14 days. Job ID: [id number] MTDD
[2018-09-11 16:08] LABS: EliA Celiac New Method **** NEW METHOD ****; t-Transglutaminase (tTG) IgA 0.2 EliAU/mL (<7 Negative); t-Transglutaminase (tTG) IgG Less than 0.6 EliAU/mL (<7 Negative)
[2018-09-11 16:09] LABS: EliA Vaculitis New Method **** NEW METHOD ****; Mitochondrial Ab 0.8 U/mL (<4 Negative)
== END 2018-09-07 18:22 | disposition home or self-care (01) ==
LOC: ERS 16:59 → T4-B 23:06
PROVIDERS: ADMIT Family Medicine; ATTEND Family Medicine
PROC: 0FC98ZZ Extirpation of Matter from Common Bile Duct, Via Natural or Artificial Opening Endoscopic (ICD-10-PCS; principal; 2018-09-06)
PROC: 0F798ZZ Dilation of Common Bile Duct, Via Natural or Artificial Opening Endoscopic (ICD-10-PCS; 2018-09-06)
PROC: 0FT44ZZ Resection of Gallbladder, Percutaneous Endoscopic Approach (ICD-10-PCS; 2018-09-07)
DX: K80.66 Calculus of gallbladder and bile duct with acute and chronic cholecystitis without obstruction (principal); E80.6 Other disorders of bilirubin metabolism; E86.1 Hypovolemia; N39.0 Urinary tract infection, site not specified; D69.6 Thrombocytopenia, unspecified; K76.0 Fatty (change of) liver, not elsewhere classified; Z98.890 Other specified postprocedural states; Z90.49 Acquired absence of other specified parts of digestive tract
CPT/HCPCS: 36415; 74177; 74330; 76705; 80053; 80074; 81003; 81015; 82248; 82274; 82728; 83516; 83520; 83540; 83690; 83735; 84100; 84443; 85025; 85610; 85730; 86256; 86780; 87086; 87389; 88304; 90471; 90686; 96360; 96361; 96365; 96366; 96372; 96375; G0008; G0378; J0696; J1100; J1170; J1610; J1650; J1885; J2001; J2310; J2405; J2543; J2704; J3010; J7050; Q9961

== ENCOUNTER 2019-09-22 15:15 | Outpatient (CLI) | payer BC ==
--- NOTE | 2019-09-22 16:39 | RAD ---
EXAM: RIGHT FOOT THREE VIEWS: 09/22/19 HISTORY: Right foot pain without injury. FINDINGS/IMPRESSION: Mild degenerative and osteoarthrosis change including the first metatarsophalangeal joint without fra cture, dislocation, or other acute process. POS: [facility]
--- NOTE | 2019-09-22 16:41 | RAD ---
EXAM: RIGHT KNEE THREE VIEWS: 09/22/19 HISTORY: Knee pain. FINDINGS/IMPRESSION: No fracture, dislocation or other significant acute osseous process. POS: [facility]
== END 2019-09-22 15:16 | disposition home or self-care (01) ==
LOC: BICRAD 15:15
PROVIDERS: ATTEND Family Medicine
DX: M25.561 Pain in right knee (principal); M79.671 Pain in right foot; M19.071 Primary osteoarthritis, right ankle and foot

== ENCOUNTER 2025-07-10 08:36 | Emergency (ER) | payer BC, OTHER ==
[2025-07-10] MEDS ORDERED: HYDROcodone/Acetaminophen 5/325 mg Tablet ONE (09:39)
== END 2025-07-10 09:55 | disposition home or self-care (01) ==
LOC: ERS 08:36
DX: M10.9 Gout, unspecified (principal); M79.674 Pain in right toe(s)
CPT/HCPCS: 99283